=== PATIENT | male | born 1965 | race Caucasian/White ===

== ENCOUNTER → 2016-10-03 | Outpatient (CLI) | payer OTHER ==
--- NOTE | 2016-10-03 07:54 | US ---
EXAMINATION TYPE: US liver DATE OF EXAM: 10/03/2016 7:23 AM COMPARISON: NONE CLINICAL HISTORY: R94.5 Abnormal LFT. No pain. NPO. EXAM MEASUREMENTS: Liver Length: 20.2 cm Gallbladder Wall: 0.2 cm CHD: 0.3 cm Right Kidney: 12.2 x 6.3 x 6.1 cm Pancreas: Obscured by bowel gas Liver: Enlarged. Echogenic. Gallbladder: wnl Evidence for sonographic Lundberg's sign: neg CBD: wnl Right Kidney: wnl IMPRESSION: 1. Hepatomegaly with fatty hepatic infiltration.
== END | disposition home or self-care (01) ==
LOC: RADUSWWP 07:07
PROVIDERS: ATTEND Family Medicine
DX: R16.0 Hepatomegaly, not elsewhere classified (principal)
CPT/HCPCS: 76705

== ENCOUNTER → 2023-06-12 | Outpatient (CLI) | payer BC ==
[2023-06-12 15:22] LABS: Basophils # (A) 0.07 X 10*3/uL (0.00-0.10); Basophils % (A) 1.1 %; Eosinophils # (A) 0.23 X 10*3/uL (0.04-0.35); Eosinophils % (A) 3.7 %; HCT 46.4 % (39.6-50.0); HGB 15.4 g/dL (13.0-17.0); Lymphocytes # (A) 2.59 X 10*3/uL (0.90-5.00); Lymphocytes % (A) 41.2 %; MCH 30.9 pg (27.0-32.0); MCHC 33.2 g/dL (32.0-37.0); Mean Platelet Volume 11.2 FL (9.5-12.2); Monocytes # (A) 0.62 X 10*3/uL (0.20-1.00); Monocytes % (A) 9.9 %; NRBC Per 100 WBC 0 X 10*3/uL (0.00-0.01); Neutrophils # (A) 2.74 X 10*3/uL (1.80-7.70); Neutrophils % (A) 43.5 %; Platelet Count 223 X 10*3/uL (140-440); RBC 4.99 X 10*6/uL (4.40-5.60); WBC 6.29 X 10*3/uL (4.50-10.00)
[2023-06-12 15:33] LABS: BUN/Creat Ratio 12.62 Ratio (12.00-20.00); Blood Urea Nitrogen 10.1 mg/dL (9.0-27.0); Calcium 9.4 mg/dL (8.7-10.3); Chloride 102 mmol/L (96-109); Glucose 223 mg/dL (70-110); Potassium 3.9 mmol/L (3.5-5.5); Sodium 140 mmol/L (135-145)
== END | disposition home or self-care (01) ==
LOC: LABPAT 07:25
PROVIDERS: ATTEND Urology
DX: Z01.812 Encounter for preprocedural laboratory examination (principal); D29.20 Benign neoplasm of unspecified testis
CPT/HCPCS: 36415; 80048; 85025

== ENCOUNTER 2023-06-19 05:51 | Day surgery (SDC) | payer BC ==
[2023-06-14 10:40] VITALS: BMI 44.4
[~2023-06-19 05:51] MED LIST: ceFAZolin 3 GM in SODIUM CHLORIDE 0.9% 100 ML IVPB PRN
[2023-06-19] MEDS ORDERED: ONDANSETRON 4 MG/2 ML VIAL IVP ONE (05:55)
[2023-06-19] MEDS ORDERED: DEXAMETHASONE SOD PHOSPHATE 4 MG/ML 1 ML VIAL IV ONE (05:55)
[2023-06-19] MEDS ORDERED: LACTATED RINGERS 1,000 ML IV SCH (05:55)
[2023-06-19] MEDS ORDERED: HYDROmorphone 0.5 MG/0.5 ML SYRINGE IVP PRN (07:00)
[2023-06-19] MEDS ORDERED: MIDAZOLAM 2 MG/2 ML VIAL ONE (07:38)
[2023-06-19] MEDS ORDERED: PROPOFOL 10 MG/ML 20 ML VIAL IV ONE (07:38)
[2023-06-19] MEDS ORDERED: ROCURONIUM 10 MG/ML (5 ML VIAL) IV ONE (07:38)
[2023-06-19] MEDS ORDERED: GLYCOPYRROLATE 0.2 MG/ML 2 ML VIAL ONE (07:38)
[2023-06-19] MEDS ORDERED: NEOSTIGMINE 1 MG/ML 10 ML VIAL ONE (07:38)
[2023-06-19] MEDS ORDERED: fentaNYL (PF) 50 MCG/ML 2 ML AMP ONE (07:38)
[2023-06-19] MEDS ORDERED: LIDOCAINE 1% INJ 10MG/ML (20 ML MDV) ONE (07:38)
[2023-06-19] MEDS ORDERED: SUCCINYLCHOLINE CHLORIDE 200 MG/10 ML VIAL IV ONE (07:38)
[2023-06-19] MEDS ORDERED: PHENYLEPHRINE 10 MG/ML VIAL ONE (07:38)
[2023-06-19] MEDS ORDERED: BUPIVACAINE (PF) 0.5% 30 ML VIAL SQ ONE (07:38)
--- NOTE | 2023-06-19 07:39 | P.HPIHPCON ---
History of Present Illness H&P Date: 06/19/23 Chief Complaint: Left testicular mass This is a 58-year-old male history of a 1.4 cm left testicular mass and elevated AFP. Discussed with him given this finding the option of a left-sided inguinal orchiectomy. Discussed the risk of surgery which includes but not limited to bleeding, infection. Discussed with him the rational for surgery details. Discussed with him this could potentially be a benign lesion, given that it's a testicular mass, if biopsies are performed there is risk of seeding. The risk of hypogonadism, infertility was also discussed. He understood all the risks and agreed to proceed Consent for Procedure: I have explained the operation/procedure to the patient, including the risks, benefits, side effects, alternative therapies (including not receiving the proposed treatment or service), the likelihood of the patient achieving his/her goals, and potential recuperation problems for the procedure/sedation/analgesia, as well as any blood products, if indicated. I also explained to the patient the risks, benefits and side effects of the alternatives, as well as the risks related to not receiving the proposed procedure, care, treatment, or services. Past Medical History Past Medical History: GERD/Reflux, Hyperlipidemia, Hypertension Additional Past Medical History / Comment(s): SEASONAL/ENVIRONMENTAL ALLERGIES. LEFT TESTICULAR MASS History of Any Multi-Drug Resistant Organisms: None Reported Past Surgical History: No Surgical Hx Reported Additional Past Surgical History / Comment(s): COLONOSCOPY Past Anesthesia/Blood Transfusion Reactions: No Reported Reaction Smoking Status: Never smoker - Past Family History Mother Family Medical History: CVA/TIA Medications and Allergies Home Medications Medication Instructions Recorded Confirmed Type Ascorbic Acid [Vitamin C] 750 mg PO DAILY 06/14/23 06/19/23 History Cetirizine HCl [Zyrtec] 10 mg PO HS 06/14/23 06/19/23 History Cholecalciferol (Vitamin D3) 2,000 unit PO DAILY 06/14/23 06/19/23 History [Vitamin D3 (50 Mcg = 2000 Iu) Chew Tab] Cyanocobalamin (Vitamin B-12) 500 mcg PO DAILY 06/14/23 06/19/23 History [Vitamin B-12] Montelukast [Singulair] 10 mg PO HS 06/14/23 06/19/23 History Multivitamin [Multivitamins Adult 2 each PO DAILY 06/14/23 06/19/23 History Gummies] Omeprazole 20 mg PO HS 06/14/23 06/19/23 History PARoxetine [Paxil] 20 mg PO HS 06/14/23 06/19/23 History Simvastatin [Zocor] 20 mg PO HS 06/14/23 06/19/23 History amLODIPine [Norvasc] 5 mg PO HS 06/14/23 06/19/23 History modafiniL [Provigil] 100 mg PO QA 06/14/23 06/19/23 History Allergies Allergy/AdvReac Type Severity Reaction Status Date / Time No Known Allergies Allergy Verified 06/19/23 06:40 Surgical - Exam Vital Signs Temp Pulse Resp BP Pulse Ox 97.3 F L 66 18 114/72 95 06/19/23 06:40 06/19/23 06:40 06/19/23 06:40 06/19/23 06:40 06/19/23 06:40 - General no distress, no pain - Eyes normal ocular movement, no pale - ENT normal nares, normal mucosa - Respiratory normal expansion, normal respiratory effort - Abdomen Abdomen: soft, non tender - Psychiatric oriented to time, oriented to person, oriented to place Assessment and Plan Assessment: OR for left inguinal orchiectomy
[2023-06-19 08:58] VITALS: TEMP 98
--- NOTE | 2023-06-19 09:10 | P.OP ---
Date of Procedure: 06/19/23 Preoperative Diagnosis: Left testicular mass Postoperative Diagnosis: Same Procedure(s) Performed: Left inguinal orchiectomy Implants: None Anesthesia: HERBERTA Surgeon: Bridger He Estimated Blood Loss (ml): 10 Pathology: other (Left testicle) Condition: stable Disposition: PACU Indications for Procedure: This is a 58-year-old male history of a 1.4 cm left testicular mass and elevated AFP. Discussed with him given this finding the option of a left-sided inguinal orchiectomy. Discussed the risk of surgery which includes but not limited to bleeding, infection. Discussed with him the rational for surgery details. Discussed with him this could potentially be a benign lesion, given that it's a testicular mass, if biopsies are performed there is risk of seeding. The risk of hypogonadism, infertility was also discussed. He understood all the risks and agreed to proceed Operative Findings: Left palpable testicular mass Description of Procedure: Patient was brought to the operating room, general anesthesia was induced. He was prepped and draped in sterile fashion and placed in the supine position. Next the testicle was palpated which confirmed that left testicular mass. Next an incision was performed using a scalpel over the left inguinal canal. Subcutaneous tissue was dissected down using cautery. Dissection was carried down to the cord. This time the ilioinguinal nerve was identified and swept away. Next the cord was completely dissected off, and a Kareem was placed around the cord. Next the testicle was inverted through the left scrotum, all testicular attachment was released from the scrotal wall, ensuring no entry into the testicle. The cord was then divided into 2 pockets, and this was tied off using 2-0 silk's 2 ties were placed in each pocket. Next the testicle was divided and sent to pathology. Hemostasis was confirmed. There was no evidence of bleeding from the proximal end of the cord. The fascia was closed using 2-0 Vicryl in running fashion, subcutaneous tissue was closed also using 2-0 Vicryl. Skin was closed using 4-0 Monocryl in running fashion. Patient tolerated procedure was taken recovery in stable condition. All needle and sponge count was correct 2 at the end of the case
[2023-06-19 09:23] VITALS: RESP 16
[2023-06-19 10:13] VITALS: BP 129/83; PULSE 66
== END 2023-06-19 10:45 | disposition home or self-care (01) ==
LOC: OR 05:51
PROVIDERS: ATTEND Urology
DX: C62.92 Malignant neoplasm of left testis, unspecified whether descended or undescended (principal)
CPT/HCPCS: 54520; 88342; 88309; 86788; 88341; J2250; J0330; J1100; J2710; J0690; J2405; J2001; J3010; J2704; J2371; J0665

== ENCOUNTER → 2023-07-06 | Outpatient (CLI) | payer BC ==
[2023-07-06 14:15] LABS: African American GFR (CKD) >90 (>60 ml/min/1.73 sqM); Blood Urea Nitrogen 10 mg/dL (9-20); Non-African American GFR(CKD) >90 (>60 ml/min/1.73 sqM)
--- NOTE | 2023-07-06 16:14 | CT ---
EXAMINATION TYPE: CT ChestAbdPelvis w con DATE OF EXAM: 07/06/2023 COMPARISON: None HISTORY: testicular ca CT DLP: 3071.5 mGycm Automated exposure control for dose reduction was used. CONTRAST: CT scan of the chest, abdomen and pelvis is performed without Oral Contrast and with IV Contrast, pat ient injected with 100 mL of Isovue 300. FINDINGS: CT chest: There is no suspicious lung mass or nodule. There is no abnormal airspace/consolidative density or abnormal interstitial density. There is no pleural effusion, pleural thickening or pneumothorax. Great vessels the chest are normal and is no mediastinal, hilar or axillary adenopathy. No focal osseous lesions are seen within the bony thorax. CT abdomen and pelvis: There is mild fatty infiltration liver. There is no focal mass or organomegaly involving the liver, p ancreas, spleen or adrenal glands. The gallbladder is normal and there is no biliary ductal dilatation. There is no solid renal mass or hydronephrosis. There is no retroperitoneal adenopathy or hemorrhage in the caliber of the abdominal aorta is normal. There is no pelvic mass, free fluid, adenopathy or abscess. No focal osseous lesions are seen. There is mild loss of the vertebral body heights of T12 and L1 likely result of mild chronic superior endplate compression deformity. IMPRESSION: 1. No evidence of metastatic disease to the chest, abdomen or pelvis. 2. Mild chronic superior endplate compression fractures of T12 and L1.
== END | disposition home or self-care (01) ==
LOC: RADCTMAIN 13:30
PROVIDERS: ATTEND Urology
DX: C62.00 Malignant neoplasm of unspecified undescended testis (principal); M48.55XA Collapsed vertebra, not elsewhere classified, thoracolumbar region, initial encounter for fracture
CPT/HCPCS: 82565; 84520; 71260; 74177; 36415; Q9967

== ENCOUNTER → 2023-11-20 | Outpatient (CLI) | payer BC ==
--- NOTE | 2023-11-27 00:53 | CT ---
EXAMINATION TYPE: CT abdomen pelvis w con CT DLP: 2356.1 mGycm, Automated exposure control for dose reduction was used. 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 Sagittal and coronal reformats were created on a [employer] workstation. Contrast used:100ml mL of Isovue 300 with IV Contrast, (none if empty) Oral contrast used: without Oral Contrast (none if empty) FINDINGS: LOWER CHEST: Mild bibasilar scarring and/or subsegmental atelectasis. ABDOMEN LIVER: Mild steatosis suggested, otherwise unremarkable. GALLBLADDER AND BILE DUCTS: Unremarkable gallbladder. No biliary ductal dilatation. PANCREAS: Unremarkable. SPLEEN: Unremarkable. ADRENAL GLANDS: Unremarkable. KIDNEYS AND URETERS: Kidneys enhance symmetrically. No evidence of hydronephrosis or visible renal ca lculus. The ureters are unremarkable. PELVIS BLADDER: Unremarkable REPRODUCTIVE: Unremarkable. ABDOMEN & PELVIS STOMACH AND BOWEL: Stomach and small bowel are nondistended, no evidence of obstruction. The append ix appears within normal limits. There is some stool and gas seen throughout the colon with no focal acute abnormality shown. PERITONEUM/RETROPERITONEUM: No evidence of pneumoperitoneum or free fluid. VASCULATURE: Mild atherosclerotic calcifications are present throughout the abdominal aorta and its b ranches. No evidence of aortic aneurysm. Portal veins are enhancing. Splenic vein and SMV are enhan cing. LYMPH NODES: No enlarged nodes by CT size criteria. SOFT TISSUE/ABDOMINAL WALL: No acute abnormalities. Mild laxity along the anterior abdominal wall mus culature with small fat-containing umbilical hernia. MUSCULOSKELETAL: No acute osseous abnormalities. Multilevel degenerative changes of the spine with m ild chronic compression deformities T12-L1 and posterior disc osteophyte complex at this level causin g roughly 50% AP canal narrowing and bilateral neural foraminal stenosis-- this could be further asse ssed with MRI as warranted. IMPRESSION: 1. No evidence of metastatic disease to the abdomen or pelvis. 2. Chronic/degenerative changes T12-L1 cause potentially significant canal and neural foraminal sten oses.
== END | disposition home or self-care (01) ==
LOC: RADCTMAIN 13:24
PROVIDERS: ATTEND Urology
DX: C62.00 Malignant neoplasm of unspecified undescended testis (principal); Z85.47 Personal history of malignant neoplasm of testis
CPT/HCPCS: 74177; Q9967

== ENCOUNTER → 2024-05-26 | Outpatient (CLI) | payer BC ==
--- NOTE | 2024-05-26 17:10 | CT ---
EXAMINATION TYPE: CT abdomen pelvis w con DATE OF EXAM: 05/26/2024 4:57 PM COMPARISON: 11/20/2023 CLINICAL INDICATION: Male, 59 years old with history of C62 testicular cancer; f/u for testicular can cer. TECHNIQUE: Axial CT abdomen pelvis w con;Sagittal and coronal reformats were created on a separate w orkstation. Contrast used:100cc mL of Isovue 300 with IV Contrast, (none if empty) Oral contrast used: without Oral Contrast (none if empty) CT DLP: 2615.8 mGycm, Automated exposure control for dose reduction was used. FINDINGS: LOWER CHEST: Unremarkable ABDOMEN LIVER: Unremarkable GALLBLADDER AND BILE DUCTS: Unremarkable. PANCREAS: Unremarkable. SPLEEN: Unremarkable. ADRENAL GLANDS: Unremarkable. KIDNEYS AND URETERS: No evidence of hydronephrosis or renal calculus. The ureters are unremarkable. PELVIS BLADDER: No evidence for wall thickening or mass given limitations of exam. REPRODUCTIVE: Unremarkable. ABDOMEN & PELVIS STOMACH AND BOWEL: No evidence of bowel obstruction. The appendix is PERITONEUM/RETROPERITONEUM: No evidence of pneumoperitoneum or free fluid. VASCULATURE: No evidence of aortic aneurysm. MUSCULOSKELETAL: No acute osseous abnormalities LYMPH NODES: No gross evidence for lymphadenopathy. SOFT TISSUE/ABDOMINAL WALL: Fat-containing umbilical hernia. IMPRESSION: No evidence for lymphadenopathy or evidence for metastatic disease. [facility] Daniel Rodriguez, , 05/26/2024 5:07 PM
== END | disposition home or self-care (01) ==
LOC: RADCTMAIN 16:10
PROVIDERS: ATTEND Urology
DX: C62.00 Malignant neoplasm of unspecified undescended testis (principal); Z85.47 Personal history of malignant neoplasm of testis
CPT/HCPCS: 74177; Q9967

== ENCOUNTER → 2024-11-19 | Outpatient (CLI) | payer BC ==
--- NOTE | 2024-11-19 18:21 | CT ---
EXAMINATION TYPE: CT abdomen w con DATE OF EXAM: 11/19/2024 5:32 PM COMPARISON: 05/26/2024 CLINICAL INDICATION: Male, 59 years old with history of C62.00 MALIGNANT NEOPLASM OF UNSPECIFIED UNDE SCEND; Hx of testicular CA TECHNIQUE: Axial CT abdomen w con;Sagittal and coronal reformats were created on a separate workstat ion. Contrast used:100 ml mL of Isovue 300 with IV Contrast, (none if empty) Oral contrast used: without Oral Contrast (none if empty) CT DLP: 1217 mGycm, Automated exposure control for dose reduction was used. FINDINGS: LOWER CHEST: Unremarkable ABDOMEN LIVER: Diffusely hypoattenuating parenchyma. GALLBLADDER AND BILE DUCTS: Unremarkable. PANCREAS: Unremarkable. SPLEEN: Unremarkable. ADRENAL GLANDS: Unremarkable. KIDNEYS AND URETERS: No evidence of hydronephrosis or renal calculus. The ureters are unremarkable. ABDOMEN & PELVIS STOMACH AND BOWEL: No evidence of bowel obstruction. The appendix is PERITONEUM/RETROPERITONEUM: No evidence of pneumoperitoneum or free fluid. VASCULATURE: No evidence of aortic aneurysm. MUSCULOSKELETAL: No acute osseous abnormalities. Mild disc degeneration changes are present throughou t the thoracolumbar spine. LYMPH NODES: No gross evidence for lymphadenopathy. SOFT TISSUE/ABDOMINAL WALL: Fat-containing umbilical hernia. IMPRESSION: 1. No evidence for lymphadenopathy or evidence for metastatic disease. 2. Hepatic steatosis. [facility] Daniel Rodriguez, , 11/19/2024 6:19 PM
== END | disposition home or self-care (01) ==
LOC: RADCTMAIN 15:17
PROVIDERS: ATTEND Urology
DX: C62.00 Malignant neoplasm of unspecified undescended testis (principal); K76.0 Fatty (change of) liver, not elsewhere classified
CPT/HCPCS: 74160; Q9967